=== PATIENT | female | born 1970 ===

== ENCOUNTER 2018-08-31 16:52 | Inpatient (IN) ==
[2018-08-31] MEDS ORDERED: SODIUM CHLORIDE 0.9% 1,000 ML IV STA (19:58)
[2018-08-31] MEDS ORDERED: PIPERACILLIN/TAZOBACTAM 3,375 MG in SODIUM CHLORIDE 0.9% 100 ML IV STA (19:58)
[2018-08-31 20:36] LABS: Basophils % 0.2 % (0.0-0.8); Eosinophils # 0.2 10*3/uL (0.0-0.87); Eosinophils % 1.8 % (0.00-10.9); Hematocrit 36.5 VOL% (35.7-47.0); Hemoglobin 11.8 GM/DL (12.0-16.0); Immature Granulocytes % 0.4 %; Immature Granulocytes Absolute 0.04 #; Lymphocytes # 1.8 10*3/uL (1.4-4.0); Lymphocytes % 18.3 % (21.3-54.2); Mean Corpuscular HGB Conc 32.3 GM/DL (32-36); Mean Corpuscular Hemoglobin 31 PG (27-34); Mean Corpuscular Volume 94.6 FL (87-102); Mean Platelet Volume 10.1 FL (9.6-12.0); Monocytes # 0.6 10*3/uL (0.11-0.8); Monocytes % 6.2 % (1.7-12.7); Neutrophils # 7.1 10*3/uL (1.4-7.4); Neutrophils % 73.1 % (38.7-73.9); Platelet Count 148 T/CUMM (130-400); Red Blood Count 3.86 MC/CUMM (3.8-5.5); Red Cell Distribution Width 12.5 % (9.3-17.3); White Blood Count 9.7 T/CUMM (4-12)
[2018-08-31 20:54] LABS: Apearance,Urine CLEAR (Clear); Bilirubin,Urine Negative (Negative); Blood, Urine Negative (Negative); Glucose,Urine (UA) >=500 mg/dL (Negative); Ketones,Urine 20 mg/dL (Negative); Mucus,Urine Occasional /LPF (Occasional); Nitrite,Urine Negative (Negative); Protein,Urine Negative; RBC,Urine 1 /HPF (0-4); Squamous Epithelial Cell,Urine Occasional /HPF (0-10); Urine Color Yellow (Yellow); Urine Specific Gravity 1.028 (1.001-1.035); WBC,Urine <1 /HPF (0-6)
[2018-08-31 20:58] LABS: Calcium 8.5 MG/DL (8.5-10.1); Osmolality,Calculated 282.8 MOS/KG (273-304)
[2018-08-31] MEDS ORDERED: DEXTROSE 50% 25 GM/50 ML VIAL IV PRN (22:26)
[2018-08-31] MEDS ORDERED: ONDANSETRON 4 MG/2 ML VIAL IV PRN (22:26)
[2018-08-31] MEDS ORDERED: GLUCAGON 1 MG VIAL IM PRN (22:26)
[2018-08-31] MEDS ORDERED: HYDROmorphone 2 MG/1 ML VIAL IV PRN (22:26)
[2018-08-31] MEDS ORDERED: ACETAMINOPHEN 325 MG TABLET PO PRN (22:26)
[2018-09-01] MEDS: SODIUM CHLORIDE 0.45% 1,000 ML IV SCH ×4 (00:12→14:35)
[2018-09-01] MEDS: INSULIN REGULAR 100 UNIT/ML SUBCUT SCH ×4 (00:13→22:19)
[2018-09-01] MEDS: PIPERACILLIN/TAZOBACTAM 3,375 MG in SODIUM CHLORIDE 0.9% 100 ML IV SCH ×3 (04:29→20:57)
[2018-09-01] MEDS: PANTOPRAZOLE 40 MG TABLET PO SCH (08:22)
[2018-09-01] MEDS ORDERED: BUPIVACAINE 0.5% 50 ML VIAL ONE (18:06)
[2018-09-01] MEDS ORDERED: LIDOCAINE 1%/EPI INJ 20 ML VIAL ONE (18:06)
[2018-09-01] MEDS ORDERED: DEXTROSE 50% 25 GM/50 ML VIAL IV PRN (18:57)
[2018-09-01] MEDS ORDERED: GLUCAGON 1 MG VIAL IM PRN (18:57)
[2018-09-01] MEDS ORDERED: SEVOFLURANE 1 UNIT/15 MINUTE INH ONE (19:29)
[2018-09-01] MEDS ORDERED: PROPOFOL 200 MG/20 ML VIAL IV ONE (19:29)
[2018-09-01] MEDS ORDERED: fentaNYL 100 MCG/2 ML VIAL ONE (19:30)
[2018-09-01] MEDS ORDERED: ACETAMINOPHEN 1,000 MG/100 ML VIAL IV ONE (19:30)
[2018-09-01] MEDS ORDERED: ONDANSETRON 4 MG/2 ML VIAL ONE (19:30)
[2018-09-01] MEDS ORDERED: MIDAZOLAM 2 MG/2 ML VIAL ONE (19:30)
[2018-09-02] MEDS: INSULIN REGULAR 100 UNIT/ML SUBCUT SCH ×4 (01:40→17:03)
[2018-09-02] MEDS: PIPERACILLIN/TAZOBACTAM 3,375 MG in SODIUM CHLORIDE 0.9% 100 ML IV SCH ×3 (03:48→20:00)
[2018-09-02] MEDS: PANTOPRAZOLE 40 MG TABLET PO SCH (08:08)
[2018-09-03] MEDS: INSULIN REGULAR 100 UNIT/ML SUBCUT SCH ×5 (00:04→23:55)
[2018-09-03] MEDS: SODIUM CHLORIDE 0.45% 1,000 ML IV SCH ×3 (02:15→13:39)
[2018-09-03] MEDS: PIPERACILLIN/TAZOBACTAM 3,375 MG in SODIUM CHLORIDE 0.9% 100 ML IV SCH ×2 (04:01→11:34)
[2018-09-03] MEDS: PANTOPRAZOLE 40 MG TABLET PO SCH (08:28)
[2018-09-03] MEDS: SODIUM HYPOCHLORITE 0.25% IRRIG 473 ML BOTTLE TOP SCH (12:30)
[2018-09-03] MEDS: CHLORHEXIDINE 4% SOLN 118 ML BOTTLE TOP SCH (12:30)
[2018-09-03] MEDS: CLINDAMYCIN INJ 300 MG in PREMIX 1 EACH IV SCH ×3 (12:50→23:55)
[2018-09-03] MEDS: metFORMIN 500 MG TABLET PO SCH (17:20)
[2018-09-04] MEDS: CLINDAMYCIN INJ 300 MG in PREMIX 1 EACH IV SCH ×2 (05:32→12:43)
[2018-09-04] MEDS: INSULIN REGULAR 100 UNIT/ML SUBCUT SCH ×2 (05:32→12:43)
[2018-09-04] MEDS: metFORMIN 500 MG TABLET PO SCH (09:21)
[2018-09-04] MEDS: PANTOPRAZOLE 40 MG TABLET PO SCH (09:22)
[2018-09-04 11:11] VITALS: BP 113/70
[2018-09-04] MEDS: SODIUM HYPOCHLORITE 0.25% IRRIG 473 ML BOTTLE TOP SCH (11:27)
[2018-09-04] MEDS: CHLORHEXIDINE 4% SOLN 118 ML BOTTLE TOP SCH (11:27)
== END 2018-09-04 12:48 | disposition home or self-care (01) | DRG 346 ==
LOC: N.ED 16:52 → N.EDINP 16:52 → N.5E 22:24
PROVIDERS: ADMIT Surgery; ATTEND Surgery